=== PATIENT | female | born 2005 | race African-American/Black ===

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

== ENCOUNTER 2023-11-09 10:43 | Emergency (ER) | payer OTHER, SELFPAY | END 2023-11-09 12:27 | disposition left against medical advice (07) | LOC: ERS 10:43 | DX: Z53.21 Procedure and treatment not carried out due to patient leaving prior to being seen by health care provider (principal) ==

== ENCOUNTER → 2024-01-17 | Emergency (ER) | payer SELFPAY ==
[2024-01-17 19:24] LABS: #Basophils 0.04 10x3/uL (0.0-0.2); %Basophils 0.6 % (0.0-1.0); %Eosinophils 2.2 % (0.0-10.0); %Lymphocytes 38.6 % (28.0-48.0); %Monocytes 9.1 % (0.0-4.0); %Neutrophils 49.2 % (31.0-61.0); Hematocrit 35.3 % (36.0-47.0); Mean Corpuscular Hemoglobin 28.7 pg (25.0-35.0); Mean Corpuscular Volume 84.4 fL (78.0-98.0); Mean Platelet Volume 10.7 fL (7.4-10.4); Platelet Count 273 10x3/uL (130-400); RBC Distribution Width 12.2 % (11.5-14.5); Red Blood Cell (RBC) Count 4.18 mill/uL (4.00-5.20)
[2024-01-17 19:31] LABS: Bilirubin Negative (Negative); Blood, Urine Negative (Negative); CAUTI Indications for Culture Dysuria,urgency,freq; Clarity Clear (Clear); Glucose, Urine (Dipstick) Normal (Negative); Ketone, Urine Negative (Negative); Leukocyte 500 Leu/uL (Negative); Nitrite Negative (Negative); Protein, Urine (Dipstick) Negative (Neg-Trace); RBC/HPF 0-3 HPF (0-3); Specific Gravity, Urine 1.011 (1.002-1.036); Urobilinogen Normal mg/dL (Less than 2)
[2024-01-17 19:34] LABS: Pregnancy Test - Urine (BHCG) Negative (Negative)
[2024-01-17 19:35] LABS: Pregu Control Background? CLEAR/WHITE (CLR/WHITE); Pregu Control Bar Appear? YES (CONTROL BAR); Specific Gravity 1.011 (1.002-1.036)
[2024-01-17 19:42] LABS: Bacteria/HPF 1+ HPF (None Seen)
[2024-01-17 19:46] LABS: Urine Culture Reflex No No
[2024-01-17 19:56] LABS: ALT (SGPT) 40 U/L (8-55); AST (SGOT) 32 U/L (5-34); Albumin 3.7 g/dL (3.5-5.0); Alkaline Phosphatase 95 U/L (40-100); Anion Gap 11 mmol/L (10-20); BUN (Urea Nitrogen) 12 mg/dL (7.0-18.7); Bilirubin, Total 0.2 mg/dL (0.2-1.2); Calc. Creatinine Clearance 0 mL/min (70-130); Calcium 9.2 mg/dL (7.8-10.44); Carbon Dioxide 23 mmol/L (22-29); Chloride 110 mmol/L (98-107); Estimated GFR 119; Globulin 3.3 g/dL (2.4-3.5); Glucose 78 mg/dL (70-105); Lipase 45 U/L (8-78); Potassium 4.2 mmol/L (3.5-5.1); Sodium 140 mmol/L (136-145)
== END ==
LOC: ERS 18:33
DX: N39.0 Urinary tract infection, site not specified (principal); Z55.6 Problems related to health literacy
CPT/HCPCS: 36415; 80053; 81001; 81025; 83690; 85025; 87491; 87591; 99284

== ENCOUNTER 2024-03-20 07:52 | Emergency (ER) | payer SELFPAY ==
[2024-03-20 08:31] LABS: #Basophils Less than 0.03 10x3/uL (0.0-0.2); %Basophils 0.4 % (0.0-1.0); %Lymphocytes 28.4 % (28.0-48.0); %Monocytes 8.1 % (0.0-4.0); %Neutrophils 59.9 % (31.0-61.0); Hemoglobin 13.7 g/dL (12.0-16.0); Mean Corpuscular HGB CONC 34.3 g/dL (32.0-36.0); Mean Corpuscular Volume 81.8 fL (78.0-98.0); Mean Platelet Volume 10.5 fL (7.4-10.4); Platelet Count 280 10x3/uL (130-400); RBC Distribution Width 12.5 % (11.5-14.5); Red Blood Cell (RBC) Count 4.89 mill/uL (4.00-5.20)
[2024-03-20 08:44] LABS: BHCG - Serum Negative (NEGATIVE); Pregs Control Background? CLEAR/WHITE (CLR/WHITE); Pregs Control Bar Appear? YES (CONTROL BAR)
[2024-03-20 09:00] LABS: ALT (SGPT) 23 U/L (Less than 34); AST (SGOT) 28 U/L (11-34); Albumin 3.8 g/dL (3.1-4.5); Alkaline Phosphatase 109 U/L (40-100); Anion Gap 12 mmol/L (10-20); BUN (Urea Nitrogen) 9 mg/dL (7.0-18.7); Bilirubin, Total 0.5 mg/dL (0.3-1.2); Calc. Creatinine Clearance 0 mL/min (70-130); Calcium 8.7 mg/dL (7.8-10.44); Carbon Dioxide 23 mmol/L (22-29); Chloride 109 mmol/L (98-107); Estimated GFR 128; Globulin 3.7 g/dL (2.4-3.5); Glucose 84 mg/dL (70-105); Lipase 19 U/L (8-78); Potassium 4.1 mmol/L (3.5-5.1); Protein, Total 7.5 g/dL (6.0-8.3); Sodium 140 mmol/L (136-145)
[2024-03-20] MEDS ORDERED: Dicyclomine 20 MG TAB ONE (09:12)
[2024-03-20 09:33] LABS: Bacteria/HPF None Seen HPF (None Seen); Bilirubin Negative (Negative); Blood, Urine Negative (Negative); CAUTI Indications for Culture Pelvic or flank pain; Clarity Clear (Clear); Glucose, Urine (Dipstick) Normal (Negative); Ketone, Urine Negative (Negative); Leukocyte Negative Leu/uL (Negative); Nitrite Negative (Negative); Protein, Urine (Dipstick) Negative (Neg-Trace); RBC/HPF None Seen HPF (0-3); Specific Gravity, Urine 1.011 (1.002-1.036); Urobilinogen Normal mg/dL (Less than 2); WBC/HPF 0-3 HPF (0-3); pH, Urine 5.5 (5.0-9.0)
[2024-03-20 09:34] LABS: Urine Culture Reflex No No
[2024-03-20] MEDS ORDERED: Iopamidol-370 76% 500 ML MDV (1 ML CHARGE) ONE (09:38)
== END 2024-03-20 11:28 | disposition home or self-care (01) ==
LOC: ERS 07:52
DX: K52.9 Noninfective gastroenteritis and colitis, unspecified (principal)
CPT/HCPCS: 74177; 80053; 81001; 83690; 84703; 85025; 87428; Q9967